=== PATIENT | male | born 1985 | race African-American/Black ===

== ENCOUNTER 2020-12-16 03:50 | Emergency (ER) | payer OTHER ==
[2020-12-16 04:13] VITALS: BP 120/69; PULSE 78; TEMP 98.1; BMI 35.5
[2020-12-16] MEDS ORDERED: LIDOCAINE HCL 2% JELLY (30 ML/TUBE) TP ONE (05:03)
[2020-12-16] MEDS ORDERED: PHENYLEPHRINE 0.25%/STARCH 1 EACH SUPP.RECT RC ONE (05:04)
[2020-12-16] MEDS ORDERED: PHENYLEPHRINE 0.25%/STARCH 1 EACH SUPP.RECT PR ONE (05:04)
[2020-12-16] MEDS ORDERED: LIDOCAINE HCL 2% JELLY 10 ML CARTRIDGE ONE (05:17)
== END 2020-12-16 06:10 | disposition home or self-care (01) ==
LOC: JER 03:50
DX: K62.89 Other specified diseases of anus and rectum (principal); K64.9 Unspecified hemorrhoids
CPT/HCPCS: 99283-25

== ENCOUNTER 2023-11-08 16:37 | Emergency (ER) | payer OTHER ==
[2023-11-08 16:44] VITALS: BP 118/80; PULSE 84; RESP 18; TEMP 98.6; BMI 36.2
[2023-11-08] MEDS ORDERED: KETOROLAC TROMETHAMINE 30 MG/1 ML VIAL ONE (17:43)
[2023-11-08] MEDS ORDERED: diazePAM 5 MG TABLET ONE (17:43)
[2023-11-08] MEDS: KETOROLAC TROMETHAMINE 30 MG/1 ML VIAL IVPUSH ONE (18:01)
[2023-11-08] MEDS: SODIUM CHLORIDE 0.9% 500 ML INFUS.BAG IV ONE (18:01)
[2023-11-08] MEDS: diazePAM 5 MG TABLET PO ONE (18:01)
[2023-11-08 18:31] LABS: BASO % 0.2 % (0-2.0); HEMATOCRIT 41.5 % (35.4-49); HEMOGLOBIN 14.1 GM/dL (11.7-16.9); LYMPH % 20.2 % (8-40); MCH 30.4 pg (25.7-33.7); MCHC 33.9 g/dl (32.0-35.9); MEAN CELL VOLUME 89.5 fl (80-96); MEAN PLT VOLUME 8.8 fl (7.5-11.1); MONO % 9.8 % (3.8-10.2); NEUT % 67.8 % (42.8-82.8); PLATELET COUNT 211 10^3/uL (134-434); RBC 4.64 M/mm3 (4.00-5.60); WHITE BLOOD COUNT 6.9 K/mm3 (4.0-10.0)
[2023-11-08 18:35] LABS: POTASSIUM 4.5 mmol/L (3.5-5.1)
[2023-11-08 18:37] LABS: CALCIUM 9.1 mg/dL (8.5-10.1)
[2023-11-08 18:38] LABS: BLOOD UREA NITROGEN 15.7 mg/dL (7-18)
[2023-11-08 18:42] LABS: BILIRUBIN,TOTAL 0.4 mg/dL (0.2-1)
[2023-11-08 18:43] LABS: TOT PROT 7.9 g/dl (6.4-8.2)
== END 2023-11-08 19:42 | disposition home or self-care (01) ==
LOC: JERFT 16:37 → JER 16:37 → JERFT 19:42
PROC: 3E0333Z Introduction of Anti-inflammatory into Peripheral Vein, Percutaneous Approach (ICD-10-PCS; principal; 2023-11-08)
DX: S16.1XXA Strain of muscle, fascia and tendon at neck level, initial encounter (principal); S09.90XA Unspecified injury of head, initial encounter; M79.601 Pain in right arm; Y04.8XXA Assault by other bodily force, initial encounter
CPT/HCPCS: 36415; 70450-TC; 72125-TC; 80053; 85025; 99284-25